=== PATIENT | female | born 1995 | race African-American/Black ===

== ENCOUNTER 2017-06-06 09:38 | Emergency (ER) | payer OTHER ==
[2017-06-06] MEDS ORDERED: Acetaminophen/HYDROcodone 325-5 MG Tab PO ONE (09:57)
[2017-06-06] MEDS ORDERED: Silver Sulfadiazine 1% Crm 50 GM Tube TOP ONE ×2 (09:58→10:04)
[2017-06-06] MEDS ORDERED: Diphtheria,Pertussis(Acell),Tetanus Vaccine 0.5 ML SDV IM ONE (10:00)
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
== END 2017-06-06 10:50 | disposition home or self-care (01) ==
LOC: FB.ED 09:38
DX: T23.201A Burn of second degree of right hand, unspecified site, initial encounter (principal); Z23 Encounter for immunization
CPT/HCPCS: 16020; 99282; A9270